=== PATIENT | male | born 1945 | race Caucasian/White ===

== ENCOUNTER 2022-02-12 09:52 | Inpatient (IN) | payer MEDICARE, OTHER ==
[~2022-02-12] VITALS: Ht 175.3 cm; Wt 86.2 kg
[~2022-02-12 09:52] MED LIST: MULTIPLE VITAMI1 CAP PO; TRILIPIX 135MG PO
[2022-02-27] VITALS (10 sets, daily range): BP systolic 118–153; BP diastolic 44–69; PULSE 45–66; TEMP 97.1–98.3
[2022-02-27] MEDS ORDERED: NORVASC 5MG5 MG/TAB PO (06:57)
[2022-02-27] MEDS ORDERED: MICARDIS HCT 121 TA1 PO (06:59)
[2022-02-27] MEDS ORDERED: LOPRESSOR100 MG PO (06:59)
[2022-02-27] MEDS ORDERED: ATORVASTATIN (07:17)
--- NOTE | 2022-02-27 08:20 | NUR ---
0645 - PT arrives for procedure w/ his friend Mike; PT states it is"OK" to release medical information to his friend, along w/ privacy password. Height and weight obtained; vitals obtained, PT denies current pain. Procedure verified and consent signed, PT verbalized understanding the procedure; first and last name + verified. PT did not bring a med list; med rec obtained from H&P and anesthesia work-up, PT verbalized that the information provided is correct. PT states he voided prior to pre-op, around "0630". Physical assessment completed, see adult physical assessment form. IV started in L AC due to x3 failed attempts: x1 L hand, x1 R hand, x1 R wrist. Pressure bandages applied; Sandy KEENE assisted. IVF scanned and are infusing without difficulty. PO medications administered. IV Flagly started IVPB: 100ml/hr. PT oriented to room and call carroll, within reach. Side rails x1. Non-slip socks are on. Questions answered to PT satisfaction.
[2022-02-27 08:35] LABS: BASO # 0.1 K/mm3 (0.0-0.2); BASO % 0.8 % (0.0-2.0); EOS # 0.2 K/mm3 (0.0-0.7); GRAN # 6.4 K/mm3 (1.4-6.5); LYMPH # 0.6 K/mm3 (1.2-3.4); LYMPH % 7.1 % (20.0-51.0); MEAN CELL VOLUME 65 fl (80.0-100.0); MEAN CORPUSCULAR HGB CONC 29 g/dl (33.0-37.0); MONO # 0.5 K/mm3 (0.1-0.6); MONO % 6.7 % (1.7-9.3); PLATELET COUNT 348 K/mm3 (130-400); RED BLOOD COUNT 4.86 M/mm3 (4.20-5.60); REDCELL DISTRIBUTION WIDTH-CV 24.2 % (11.5-14.5)
--- NOTE | 2022-02-27 08:37 | NUR ---
0745 - Labs drawn and sent to lab via [facility]. XC obtained by radiology; RT contacted for EKG.
[2022-02-27 08:38] LABS: HEMATOCRIT 31.5 % (42.0-52.0); HEMOGLOBIN 9.1 g/dl (13.5-18.0); MEAN CORPUSCULAR HEMOGLOBIN 19 pg (27-31)
[2022-02-27 08:52] LABS: CALCIUM 9.1 mg/dL (8.4-10.2); CREATININE, serum 0.87 mg/dL (0.72-1.25); POTASSIUM 3.9 mmol/L (3.5-4.5)
--- NOTE | 2022-02-27 08:55 | NUR ---
0855 - , LABORATORY GENETICIST and TAX EVALUATOR have spoken w/ PT. PT was taken to the OR at this time. Belongings sent to PACU.
--- NOTE | 2022-02-28 00:13 | NUR ---
SHIFT REPORT FROM JENNIFER KEENE. PATIENT IN BED ON ROOM ENTRY. DENIES PAIN. REFUSES TYLENOL AND MOTRIN. ENCOURAGED PATIENT TO AMBULATE BUT PATIENT REFUSED. BERG TO DD WITH CLEAR YELLOW OUTPUT. X5 LAP CDI, SMALL ABD MIDLINE CDI. DENIES ADDITIONAL NEEDS. CALL LIGHT IN REACH.
[2022-02-28 00:24] VITALS: BP 121/57; PULSE 52; TEMP 99
[2022-02-28 04:29] VITALS: BP 129/59; PULSE 56; TEMP 98.9
[2022-02-28 06:30] LABS: BASO % 0.4 % (0.0-2.0); EOS # 0.1 K/mm3 (0.0-0.7); EOS % 0.7 % (0.0-4.0); GRAN # 6.7 K/mm3 (1.4-6.5); GRAN % 83.7 % (42.2-75.2); LYMPH # 0.5 K/mm3 (1.2-3.4); LYMPH % 6.5 % (20.0-51.0); MEAN CELL VOLUME 65 fl (80.0-100.0); MEAN CORPUSCULAR HGB CONC 29 g/dl (33.0-37.0); MEAN PLATELET VOLUME 10.5 fl (7.4-10.4); MONO # 0.7 K/mm3 (0.1-0.6); MONO % 8.5 % (1.7-9.3); PLATELET COUNT 312 K/mm3 (130-400); RED BLOOD COUNT 4.56 M/mm3 (4.20-5.60); REDCELL DISTRIBUTION WIDTH-CV 23.7 % (11.5-14.5)
[2022-02-28 06:34] LABS: HEMATOCRIT 29.8 % (42.0-52.0); HEMOGLOBIN 8.5 g/dl (13.5-18.0); MEAN CORPUSCULAR HEMOGLOBIN 19 pg (27-31)
[2022-02-28 06:53] LABS: CALCIUM 8.6 mg/dL (8.4-10.2); CREATININE, serum 0.8 mg/dL (0.72-1.25); MAGNESIUM 1.9 mg/dL (1.6-2.6); PHOSPHOROUS 2.9 mg/dL (2.3-4.7); POTASSIUM 3.7 mmol/L (3.5-4.5)
[2022-02-28 08:22] VITALS: BP 142/50; BP 144/54; PULSE 48; PULSE 55; TEMP 98; TEMP 98.5
--- NOTE | 2022-02-28 08:45 | NUR ---
Pt. sitting up in bed. Pt. is A&OX3, assessment complete. INT to lt. ac patent. Pt. denies pain at this time. Abd. incisions CDI. Abdullahi catheter D/c'd. Pt. denies further needs, call light within reach.
[2022-02-28 12:24] VITALS: BP 143/53; PULSE 62; TEMP 98.3
--- NOTE | 2022-02-28 13:52 | NUR ---
lube worker met with patient to complete intake and discuss discharge plan. [place] and lives alone. He reports to being fully independent with his ADL's and does not utilize any DME to assist with mobility. Patient does not utilize home oxygen. PCP is Dr.Christopher Patel and he utilizes [facility] pharmacy in [place] for short term medications and mail order for parts counterman medications. Patient reports that he does not have a specific DPOA-HC, but does have a living will that lists his daughter Elizabeth ([phone]) and "thinks" it includes healthcare. Patient appears well groomed with a restricted affect. He is planning on returning home once medically ready. Discharge plan: Home
[2022-02-28 16:15] VITALS: BP 133/50; PULSE 46; TEMP 98.4
[2022-02-28 20:08] VITALS: BP 119/51; PULSE 61; TEMP 98.4
--- NOTE | 2022-02-28 22:13 | NUR ---
SHIFT REPORT FROM JENNIFER KEENE. PATIENT IN BED ON ROOM ENTRY. ALERT AND ORIENTED. C/O PAIN IN SHOULDER BUT REFUSES SCHEDULED TYLENOL AND MOTRIN.
[2022-03-01] VITALS: BP 136/62; PULSE 63; TEMP 98.2
[2022-03-01 04:42] VITALS: BP 134/60; PULSE 60; TEMP 98.3
[2022-03-01 07:11] LABS: BASO # 0.1 K/mm3 (0.0-0.2); BASO % 0.6 % (0.0-2.0); EOS # 0.3 K/mm3 (0.0-0.7); EOS % 3.3 % (0.0-4.0); GRAN # 6.6 K/mm3 (1.4-6.5); GRAN % 76.3 % (42.2-75.2); HEMOGLOBIN 10.4 g/dl (13.5-18.0); LYMPH # 0.9 K/mm3 (1.2-3.4); LYMPH % 10.5 % (20.0-51.0); MEAN CELL VOLUME 66 fl (80.0-100.0); MEAN CORPUSCULAR HEMOGLOBIN 19 pg (27-31); MEAN CORPUSCULAR HGB CONC 28 g/dl (33.0-37.0); MONO # 0.8 K/mm3 (0.1-0.6); MONO % 9.1 % (1.7-9.3); PLATELET COUNT 372 K/mm3 (130-400); RED BLOOD COUNT 5.51 M/mm3 (4.20-5.60); REDCELL DISTRIBUTION WIDTH-CV 24.6 % (11.5-14.5)
[2022-03-01 07:18] LABS: HEMATOCRIT 36.6 % (42.0-52.0)
[2022-03-01 07:30] LABS: ALBUMIN 4.1 gm/dL (3.4-4.8); BILIRUBIN,TOTAL 0.4 mg/dL (0.2-1.2); CALCIUM 9.6 mg/dL (8.4-10.2); CREATININE, serum 0.89 mg/dL (0.72-1.25); POTASSIUM 3.4 mmol/L (3.5-4.5)
[2022-03-01 07:44] VITALS: BP 136/53; PULSE 62; TEMP 98.5
--- NOTE | 2022-03-01 08:00 | NUR ---
Assessment complete. A&Ox4. Denies pain, nausea and shortness of breath. VS remain stable. Lap sites x5 edges well approximated. Midline CDI. +flatus. +BM. Voiding without difficulty. INT to left forearm flushes well. Plan of care discussed for this shift to include meds/pain control/discharge. Verbalizes understanding. Call light in reach. Will monitor.
[2022-03-01] MEDS ORDERED: PERCOCET 325 MG1 TA2 PO (08:32)
--- NOTE | 2022-03-01 09:50 | NUR ---
Discharge instructions given both verbal and handwritten. Discussed f/u appt, s/s of infection, home medications, activity and diet. INT TO left forearm DCDd cath intact. Instructed to call for escort when ride arrived. Verbalizes understanding/denies questions.
--- NOTE | 2022-03-01 10:33 | NUR ---
Ambulated off hernandez with MADISON Dela Cruz in stable condition.
--- NOTE | 2022-03-01 11:36 | NUR ---
Leyda: Christianity Situation: manganese wheeler stopped by room on rounds Background: Pt was dressed and ready to be dismissed Assessment: No needs right now Recommendation: manganese wheeler will follow up as needed
== END 2022-03-01 10:33 | disposition home or self-care (01) | DRG 331 ==
LOC: INPTSU 02-27 06:35 → SURG 02-27 06:35
PROVIDERS: ADMIT Surgery
PROC: 8E0W4CZ Robotic Assisted Procedure of Trunk Region, Percutaneous Endoscopic Approach (ICD-10-PCS; 2022-02-27)
PROC: 4A1BXSH Monitoring of Gastrointestinal Vascular Perfusion using Indocyanine Green Dye, External Approach (ICD-10-PCS; 2022-02-27)
PROC: 0DBH4ZZ Excision of Cecum, Percutaneous Endoscopic Approach (ICD-10-PCS; principal; 2022-02-27 08:45)
DX: C18.0 Malignant neoplasm of cecum (principal); I10 Essential (primary) hypertension; E78.5 Hyperlipidemia, unspecified; J30.2 Other seasonal allergic rhinitis; D50.9 Iron deficiency anemia, unspecified; M19.042 Primary osteoarthritis, left hand; M19.041 Primary osteoarthritis, right hand; H91.92 Unspecified hearing loss, left ear; N52.9 Male erectile dysfunction, unspecified; K43.9 Ventral hernia without obstruction or gangrene; Z72.89 Other problems related to lifestyle
CPT/HCPCS: A4314; A9284; J0330; J0690; J1650; J2405; J2704; J3010; J7120